=== PATIENT | male | born 1940 | race Caucasian/White ===

== ENCOUNTER 2019-06-20 11:43 | Emergency (ER) | payer MEDICARE ==
--- NOTE | 2019-06-20 12:43 | RAD ---
XR Hip Lt 2-3 View INDICATION: Left hip pain COMPARISON: None FINDINGS: Bones: No acute osseous abnormality. Bone mineralization appears within normal limits. Hip joint: There is mild degenerative arthrosis of the left hip. SI joints and symphysis pubis: Radiographically normal. Intrapelvic contents: Visualized bowel gas pattern is within normal limits. Surrounding soft tissues: Radiographically normal. IMPRESSION: 1. No acute osseous abnormality.
--- NOTE | 2019-06-20 12:48 | RAD ---
3 views of the lumbar spine INDICATION: Low back pain COMPARISON: None FINDINGS: There is suspicion for bilateral pars defects at L5 with grade 1 anterolisthesis. There is advanced multilevel disc degenerative disease. There are prominent facet osteoarthritic change seen at L3-4 through L4-5. No acute fracture is evident. 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
== END 2019-06-20 13:28 | disposition home or self-care (01) ==
LOC: NAV ERS 11:43
DX: M54.32 Sciatica, left side (principal); F32.9 Major depressive disorder, single episode, unspecified; E78.5 Hyperlipidemia, unspecified; E78.00 Pure hypercholesterolemia, unspecified; F41.9 Anxiety disorder, unspecified; E11.40 Type 2 diabetes mellitus with diabetic neuropathy, unspecified; Z79.4 Long term (current) use of insulin; Z79.899 Other long term (current) drug therapy; Z79.82 Long term (current) use of aspirin
CPT/HCPCS: 72100

== ENCOUNTER 2020-05-18 08:51 | Emergency (ER) | payer MEDICARE ==
[2020-05-18 10:02] LABS: #Basophils 0.1 thou/uL (0.0-0.2); #Eosinphils 0.1 thou/uL (0.0-0.7); #Neutrophils 16.4 thou/uL (1.40-6.50); %Basophils 0.6 % (0.0-1.0); %Eosinophils 0.3 % (0.0-10.0); %Lymphocytes 9.5 % (21.0-51.0); %Monocytes 9.8 % (0.0-10.0); %Neutrophils 79.8 % (42.0-75.0); Hemoglobin 16.5 g/dL (14.0-18.0); Manual Diff?? NO; Mean Corpuscular HGB CONC 32.6 g/dL (32.0-36.0); Mean Corpuscular Volume 92.2 fL (78.0-98.0); Mean Platelet Volume 6.5 fL (7.4-10.4); Platelet Count 484 thou/uL (130-400); RBC Distribution Width 10.7 % (11.5-14.5); Red Blood Cell (RBC) Count 5.51 mill/uL (4.70-6.10); White Blood Cell (WBC) Count 20.6 thou/uL (4.8-10.8)
[2020-05-18 10:13] LABS: ALT (SGPT) 11 U/L (8-55); AST (SGOT) 11 U/L (5-34); Albumin 3.1 g/dL (3.4-4.8); Alkaline Phosphatase 117 U/L (40-110); Anion Gap 20 mmol/L (10-20); BUN (Urea Nitrogen) 30 mg/dL (8.4-25.7); Bilirubin, Total 0.9 mg/dL (0.2-1.2); Calc. Creatinine Clearance 0 mL/min (70-130); Calcium 8.4 mg/dL (7.8-10.44); Carbon Dioxide 22 mmol/L (23-31); Chloride 91 mmol/L (98-107); Estimated GFR-MDRD 33; Globulin 3.7 g/dL (2.4-3.5); Glucose 543 mg/dL (83-110); Potassium 4.4 mmol/L (3.5-5.1); Protein, Total 6.8 g/dL (5.8-8.1); Sodium 129 mmol/L (136-145)
--- NOTE | 2020-05-18 10:22 | RAD ---
Exam: Chest one view HISTORY:Cough Comparison: None FINDINGS: Cardiac silhouette: Normal Aorta: Atherosclerosis of the aortic knob Pulmonary vessels: Normal Costophrenic angles: Right-sided pleural effusion LUNGS: Right basilar opacities. Pneumothorax: None Osseous abnormalities: None IMPRESSION: No parenchymal changes of the right lung base. Additional parenchymal opacities in the le ft lung base. Correlate for pneumonia, atelectasis or aspiration.
[2020-05-18] MEDS ORDERED: Insulin Regular 300 UNITS/3 ML VIAL ONE (10:38)
[2020-05-18] MEDS ORDERED: Sodium Chloride 0.9% 1,000 ML ONE ×2 (10:38→11:52)
[2020-05-18] MEDS ORDERED: Sodium Chloride 0.9% 100 ML ONE (10:38)
[2020-05-18] MEDS ORDERED: cefTRIAXone\\ROCEPHIN 1 GM VIAL ONE (10:38)
[2020-05-18] MEDS ORDERED: Morphine 4 MG/ML VIAL ONE (10:57)
[2020-05-18] MEDS ORDERED: Ondansetron PF 4 MG/2 ML Vial ONE (10:57)
[2020-05-18] MEDS ORDERED: Ketorolac Tromethamine 30 MG/ML VIAL ONE (11:26)
[2020-05-18] MEDS ORDERED: Azithromycin 500 MG VIAL ONE (11:47)
[2020-05-18] MEDS ORDERED: Sodium Chloride 0.9% 250 ML 250 ML ONE (11:47)
--- NOTE | 2020-05-18 12:43 | CT ---
CT BRAIN WITHOUT CONTRAST: HISTORY: Cough, weakness. FINDINGS: There are changes or cortical atrophy and chronic small-vessel ischemic disease. The ventricular siz e is appropriate and the basilar cisterns patent. No evidence of acute infarct, hemorrhage, midline shift, or abnormal extraaxial fluid collections is seen. The bony calvarium is intact. The visualized paranasal sinuses and mastoid air cells are well aerated. IMPRESSION: No CT evidence of acute intracranial process. POS: AH
--- NOTE | 2020-05-18 12:46 | CT ---
CT chest noncontrast HISTORY: Cough and fever. FINDINGS: There is abrupt termination of the bronchus to the lateral basilar segment right lower lobe . Complete collapse of this segment. Groundglass parenchymal infiltrate is present within the posterior basilar segment of the right lower lobe. Minimal atelectasis at the left posterior lung base. There are degenerative changes of the thoracic spine and partially visualized lower cervical spine. Lack of contrast limits evaluation of the soft tissues. Borderline size lymph nodes are present throu ghout the mediastinum, measuring up to 1.6 cm long axis diameter at the right paratracheal level. Approximately one quarter of the stomach is above the level of the diaphragm. Low-density lesions of each kidney are favored to represent cysts. There is a 0.3 cm calculus present within a nondilated calyx at the inferior pole of the left kidney. IMPRESSION : Atelectasis at the posterior basilar segment right lower lobe with abrupt termination of the bronchus , worrisome for an endobronchial lesion. Mild groundglass infiltrate at the right posterior lung base. Please consider pulmonary evaluation for potential bronchoscopy. Mild groundglass infiltrate at the right posterior lung base. Borderline mediastinal lymph node enlargement. Small hiatal hernia. Small nonobstructing left renal calculus.
== END 2020-05-18 12:53 | disposition short-term general hospital (02) ==
LOC: NAV ERS 08:51
DX: A41.9 Sepsis, unspecified organism (principal); J18.9 Pneumonia, unspecified organism; E11.65 Type 2 diabetes mellitus with hyperglycemia; E78.5 Hyperlipidemia, unspecified; E11.40 Type 2 diabetes mellitus with diabetic neuropathy, unspecified; E78.00 Pure hypercholesterolemia, unspecified; F41.9 Anxiety disorder, unspecified; F32.9 Major depressive disorder, single episode, unspecified; Z79.899 Other long term (current) drug therapy
CPT/HCPCS: 36415; 70450; 71045; 71250; 80053; 83605; 83880; 84484; 85025; 85379; 87040; 93005; 94760; 96365; 96367; 96375; J0456; J0696; J1815; J1885; J2270; J2405; J7050

== ENCOUNTER 2021-12-06 09:57 | Emergency (ER) | payer MEDICARE ==
[2021-12-06] MEDS ORDERED: Sucralfate 1 GM TAB ONE (10:30)
== END 2021-12-06 10:45 | disposition home or self-care (01) ==
LOC: NAV ERS 09:57
DX: K20.90 Esophagitis, unspecified without bleeding (principal); E11.40 Type 2 diabetes mellitus with diabetic neuropathy, unspecified; I10 Essential (primary) hypertension; E78.5 Hyperlipidemia, unspecified; E78.00 Pure hypercholesterolemia, unspecified; M19.90 Unspecified osteoarthritis, unspecified site; Z79.4 Long term (current) use of insulin; Z79.84 Long term (current) use of oral hypoglycemic drugs; Z79.899 Other long term (current) drug therapy
CPT/HCPCS: 93005

== ENCOUNTER 2022-11-01 18:18 | Emergency (ER) | payer OTHER ==
[2022-11-01 18:38] LABS: #Basophils 0.2 thou/uL (0.0-0.2); #Eosinphils 0.2 thou/uL (0.0-0.7); #Lymphocytes 3.7 thou/uL (1.20-3.40); #Monocytes 0.7 thou/uL (0.11-0.59); %Basophils 1.4 % (0.0-1.0); %Eosinophils 1.9 % (0.0-10.0); %Lymphocytes 34.2 % (21.0-51.0); %Monocytes 6.8 % (0.0-10.0); %Neutrophils 55.7 % (42.0-75.0); Hemoglobin 15.5 g/dL (14.0-18.0); Mean Corpuscular Hemoglobin 30.2 pg (27.0-31.0); Mean Corpuscular Volume 91.5 fl (78.0-98.0); Platelet Count 285 10x3/uL (130-400); RBC Distribution Width 11.4 % (11.5-14.5); Red Blood Cell (RBC) Count 5.13 mill/uL (4.70-6.10); White Blood Cell (WBC) Count 10.8 10x3/uL (4.8-10.8)
[2022-11-01] MEDS ORDERED: Aspirin Chewable 81 MG TAB ONE (18:43)
[2022-11-01 18:55] LABS: ALT (SGPT) 11 U/L (8-55); AST (SGOT) 13 U/L (5-34); Alkaline Phosphatase 89 U/L (40-110); Anion Gap 19 mmol/L (10-20); BUN (Urea Nitrogen) 24 mg/dL (8.4-25.7); Bilirubin, Total 0.4 mg/dL (0.2-1.2); Calc. Creatinine Clearance 0 mL/min (70-130); Calcium 9.3 mg/dL (7.8-10.44); Carbon Dioxide 23 mmol/L (23-31); Chloride 102 mmol/L (98-107); Estimated GFR 38; Globulin 3.1 g/dL (2.4-3.5); Glucose 206 mg/dL (83-110); Potassium 4.6 mmol/L (3.5-5.1); Protein, Total 7.1 g/dL (5.8-8.1); Sodium 139 mmol/L (136-145)
[2022-11-01 19:37] LABS: Bilirubin Negative (Negative); Blood, Urine Negative (Negative); Clarity Clear (Clear); Glucose, Urine (Dipstick) 100 mg/dL (Negative); Ketone, Urine Negative (Negative); Leukocyte Trace (Negative); Nitrite Negative (Negative); Protein, Urine (Dipstick) Negative (Neg-Trace); Urobilinogen 0.2 mg/dL (Less than 2)
[2022-11-01 19:39] LABS: Bacteria/HPF None Seen HPF (None Seen); RBC/HPF 0-3 HPF (0-3); Squamous Epithelial None Seen HPF (0-3); WBC/HPF 0-3 HPF (0-3)
== END 2022-11-01 21:00 | disposition left against medical advice (07) ==
LOC: NAV ERS 18:18
DX: I44.1 Atrioventricular block, second degree (principal); E78.00 Pure hypercholesterolemia, unspecified; E11.9 Type 2 diabetes mellitus without complications; I10 Essential (primary) hypertension; Z79.4 Long term (current) use of insulin; Z79.899 Other long term (current) drug therapy; Z79.84 Long term (current) use of oral hypoglycemic drugs
CPT/HCPCS: 36415; 71045; 80053; 81003; 81015; 83605; 84484; 85025; 93005